=== PATIENT | male | born 1955 | race Caucasian/White ===

== ENCOUNTER 2020-09-19 11:54 | Emergency (ER) | payer OTHER, MEDICARE ==
[~2020-09-19] VITALS: Ht 160 cm; Wt 90.7 kg
[~2020-09-19 11:54] MED LIST: AMBEREN; ASPIRIN EC81 M1 PO; DIABETA; FISH OIL 1,0001 EAC8 PO; LISINOPRIL10 MG PO; NORVASC10 MG PO; PROTONIX40 M2 PO; VITAMIN D400 UNI1 PO
[2020-09-19 12:53] LABS: BASOPHILS 0.7 % (0.0-2.0); HEMATOCRIT 49.7 % (42.0-52.0); HEMOGLOBIN 16.7 gm/dL (14.0-18.0); LYMPHOCYTES 16.6 % (24.0-44.0); MCH 30.5 pg (26.0-34.0); MCHC 33.5 g/dL (28.0-37.0); MCV 91.1 fL (80.0-100.0); MONOCYTES 8.2 % (1.0-8.0); PLATELET COUNT 129 thou/uL (150-400); POLYS 73.5 % (36.0-66.0); RBC 5.45 mil/uL (4.50-6.00); RDW 14.5 % (10.5-14.5); WBC 10.8 thou/uL (4.0-11.0)
[2020-09-19 13:12] LABS: ANION GAP 7 mmol/L (7-16); BUN 13 mg/dL (7-18); CHLORIDE 106 mmol/L (98-107); CO2 29 mmol/L (21-32); CREATININE 0.9 mg/dL (0.7-1.3); GLUCOSE 198 mg/dL (74-106); POTASSIUM 4.6 mmol/L (3.5-5.1); SODIUM 142 mmol/L (136-145)
[2020-09-19 13:22] LABS: ALBUMIN 3.6 g/dL (3.4-5.0); SGOT 17 U/L (15-37); SGPT 17 U/L (30-65); TOTAL BILIRUBIN 0.3 mg/dL (0.2-1.0); TOTAL PROTEIN 7.2 g/dL (6.4-8.2); TROPONIN-I <0.06 ng/mL (<0.06)
[2020-09-19 15:58] VITALS: BP 140/78
--- NOTE | 2020-09-20 09:22 | EKG ---
[place] [address] [facility] [facility] [place] [address] ELECTROCARDIOGRAM REPORT Name: JANI PUGH Room #: DEP SILVESTRE Ha#: [id number] Admission: 09/19/20 Attend Phys: Discharge: 09/19/20 Date of : 55 Report #: [id number] [facility] ED Test Date: 2020-09-19 Test Time: 12:04:25 Pat Name: JANI PUGH Department: Room: Gender: M Principal Product Manager: CAREN : 1955 Requested By: Ta Kaiser Order Number: [id number] MD: Davi Peera Measurements Intervals Turner Rate: 94 P: 74 TN: 200 QRS: 109 QRSD: 140 T: 14 QT: 372 QTc: 466 Interpretive Statements Sinus rhythm Ventricular premature complex Probable left atrial enlargement Right bundle branch block Baseline wander in lead(s) I,III,aVL,V6 Compared to ECG 02/18/2011 12:24:11 Ventricular premature complex(es) now present Right bundle-branch block now present Sinus arrhythmia no longer present Right-axis deviation no longer present Electronically Signed On 09-20-2020 9:22:05 CDT by Davi Perea [email or web address] <ELECTRONICALLY SIGNED> By: Davi Perea MD, FAC 09/20/20 0922 1204 1204 Davi Perea MD, [facility] /EPI
== END 2020-09-19 16:00 | disposition home or self-care (01) ==
LOC: ER 11:54
PROVIDERS: Emergency Medicine
DX: R07.89 Other chest pain (principal); E11.9 Type 2 diabetes mellitus without complications; I10 Essential (primary) hypertension; K21.9 Gastro-esophageal reflux disease without esophagitis; F17.210 Nicotine dependence, cigarettes, uncomplicated; Z79.2 Long term (current) use of antibiotics; Z79.82 Long term (current) use of aspirin; Z88.0 Allergy status to penicillin; Z90.49 Acquired absence of other specified parts of digestive tract

== ENCOUNTER → 2020-11-10 | Outpatient (CLI) | payer OTHER, MEDICARE | LOC: SJCVCIMAG 07:00 | PROVIDERS: ATTEND Internal Medicine Cardiovascular Disease | DX: I44.0 Atrioventricular block, first degree (principal); I45.10 Unspecified right bundle-branch block; R07.9 Chest pain, unspecified; R61 Generalized hyperhidrosis; R06.00 Dyspnea, unspecified; I20.8 Other forms of angina pectoris; I10 Essential (primary) hypertension; E78.00 Pure hypercholesterolemia, unspecified; E11.9 Type 2 diabetes mellitus without complications; E78.5 Hyperlipidemia, unspecified; F17.200 Nicotine dependence, unspecified, uncomplicated; Z79.82 Long term (current) use of aspirin; Z79.899 Other long term (current) drug therapy; Z88.0 Allergy status to penicillin ==

== ENCOUNTER → 2020-12-02 | Outpatient (CLI) | payer OTHER, MEDICARE ==
[~2020-12-02] VITALS: Ht 160 cm; Wt 90.7 kg
[~2020-12-02] MED LIST changes: +ALBUTEROL2.5 MG/31 INH; +B-COMPLEX-VITA1 EACH PO; +FLOMAX0.4 MG PO; +LIPITOR10 MG PO; +NOVOLIN 70100 UNIT/5 SUBQ
[2020-12-02 08:18] VITALS: BP 136/110
[2020-12-02 08:29] LABS: HEMATOCRIT 48.8 % (42.0-52.0); HEMOGLOBIN 16.3 gm/dL (14.0-18.0); MCH 30.5 pg (26.0-34.0); MCHC 33.4 g/dL (28.0-37.0); MCV 91.3 fL (80.0-100.0); RBC 5.34 mil/uL (4.50-6.00); RDW 14.5 % (10.5-14.5); WBC 11.4 thou/uL (4.0-11.0)
[2020-12-02 08:41] LABS: CALCIUM 8.9 mg/dL (8.5-10.1); CREATININE 0.9 mg/dL (0.7-1.3); POTASSIUM 3.7 mmol/L (3.5-5.1)
--- NOTE | 2020-12-02 13:09 | CATHLAB ---
[facility] [place] [address] INVASIVE PROCEDURE REPORT Name: JANI PUGH Room #: REG [facility]#: [id number] Admission: 12/02/20 Attend Phys: Leoncio Stern MD Discharge: Date of : 55 Report #: [id number] THIS REPORT FOR: cc: Barbara Vásquez MD, Melanie MD Park, Jin S. MD ~ APPROVED REPORT Study performed: 12/02/2020 09:44:00 Patient Details Patient Status: Out-Patient Room #: The patient is a 65 year-old male Event Personnel Leoncio Stern Foot Specialist, Gissell Lindsey RTR Monitor, Ruchi Phan RN RN, Ingris Jarrett RTR, DIRECTOR IMMUNOLOGY Scrub Procedures Performed Art Access - R femoral artery* Left Heart Cath w/or w/o Coronaries [id number] [facility] Hemostasis with Manual pressure 76689 Initial Mod Sed Same Phys/QHP Gr5y [id number] 03875 Mod Sed Same Phys/QHP Ea 077759 Indication Dyspnea, Positive stress test Risk Factors HypercholesterolemiaPhysical Activity, Hypertension, Diabetes Tobacco History () Procedure Narrative The Right Groin^ was infiltrated with 1% Lidocaine subcutaneous anesthesia. A PINNACLE 4FR Sheath #[id number] sheath was inserted into the RFA^. Coronary angiography was performed using coronary diagnostic catheters. The right coronary system was accessed and visualized with a JR4 catheter. The left coronary system was accessed and visualized with a JL4 catheter. The left ventricle was accessed and visualized with a JR4 catheter. Hemostasis was obtained with manual pressure following sheath removal without any complications. The patient tolerated the procedure well and there were no complications associated with the procedure. There was no hematoma. [facility] [address] [place] [address] INVASIVE PROCEDURE REPORT Name: JANI PUGH Room #: REG CL [facility]#: [id number] Admission: 12/02/20 Attend Phys: Leoncio Stern MD Discharge: Date of : 55 Report #: [id number] Intraoperative Conscious Sedation Sedation start time: 11:05 Case end Time: 11:34 Fentanyl 50 mcg Versed 1 mg Fluoro Time: 3.30 minutes Dose: DAP 7185.80 cGycm2 1081 mGy Contrast Type and Amount: Omnipaque 45 ml Coronary Angiography The patient's coronary anatomy is left dominant. Diagnostic Cath Left Main There are separate ostia for the LAD and left circumflex. LAD This is a moderate-sized caliber vessel, traverses the anterior wall and wraps around the apex. There is mild diffuse disease in the midsegment, 20 to 30%. Diagonal 1 This is a small to moderate-sized caliber vessel, patent with no flow-limiting lesions. Diagonal 2 This is a small to moderate-sized caliber vessel, patent with no flow-limiting lesions. Circumflex The left circumflex artery is a dominant vessel. There is a mild stenosis in the proximal and mid segments, 30%. OM1 This is a moderate-sized caliber vessel, with mild disease proximally. OM2 This is a small to moderate-sized caliber vessel, patent with no flow-limiting lesions. OM3 This is a small to moderate-sized caliber vessel, patent with no flow-limiting lesions. L PDA There is a moderate-sized caliber vessel with mild disease proximally. Right Coronary This is a small, nondominant vessel with mild disease. Left Ventriculography Left Ventriculography was not performed. Ejection Fraction was >55% based off patient's Nuclear Cardiac Stress Test. An LVEDP was measured and there is no gradient across the outflow tract. Hemodynamics The aortic pressure is 139/82 mmHg with a mean of 106 mmHg. The left ventricular pressure is 128/13 mmHg with a mean of mmHg. The left ventricular end diastolic pressure is 21 mmHg. [facility] [address] [place] [address] INVASIVE PROCEDURE REPORT Name: JANI PUGH Room #: REG CL [facility]#: [id number] Admission: 12/02/20 Attend Phys: Leoncio Stern MD Discharge: Date of : 55 Report #: [id number] Conclusion 1. There is mild, nonobstructive disease in the LAD and left circumflex arteries. 2. The left circumflex artery is a dominant vessel. 3. There is mild disease in OM1 and the left PDA. 4. There is normal LV systolic function. 5. Recommend aggressive risk factor management. <ELECTRONICALLY SIGNED> By: Leoncio Stern MD 12/02/201308 08 08 Leoncio Stern MD /INF
--- NOTE | 2020-12-03 07:22 | EKG ---
[place] [address] [address] [facility] [place] [address] ELECTROCARDIOGRAM REPORT Name: JANI PUGH [id number] Admission: 12/02/20 Attend Phys: Leoncio Stern MD Discharge: Date of : 55 Report #: [id number] [facility] Test Date: 2020-12-02 Test Time: 08:14:46 Pat Name: JANI PUGH Department: Room: Gender: M Research Hydrologist: GINO : 1955 Requested By: Leoncio Stern Order Number: [id number] MD: Davi Perea Measurements Intervals Hooks Rate: 93 P: 67 WY: 195 QRS: 109 QRSD: 149 T: 7 QT: 379 QTc: 472 Interpretive Statements Sinus rhythm RBBB Compared to ECG 09/19/2020 12:04:25 Ventricular premature complex(es) no longer present Electronically Signed On 12-03-2020 7:22:05 CDT by Davi Perea [email or web address] <ELECTRONICALLY SIGNED> By: Davi Perea MD, [facility] 12/03/2022 3 3 Davi Perea MD, FACC /EPI
== END | disposition home or self-care (01) ==
LOC: CATH 07:20
PROVIDERS: ATTEND Internal Medicine Cardiovascular Disease
DX: R94.39 Abnormal result of other cardiovascular function study (principal); I25.10 Atherosclerotic heart disease of native coronary artery without angina pectoris; R06.00 Dyspnea, unspecified; I10 Essential (primary) hypertension; E78.00 Pure hypercholesterolemia, unspecified; E11.9 Type 2 diabetes mellitus without complications; J44.9 Chronic obstructive pulmonary disease, unspecified; K21.9 Gastro-esophageal reflux disease without esophagitis; Z98.890 Other specified postprocedural states; Z79.899 Other long term (current) drug therapy; Z79.4 Long term (current) use of insulin; Z82.49 Family history of ischemic heart disease and other diseases of the circulatory system

== ENCOUNTER → 2020-12-23 | Outpatient (CLI) | payer OTHER, MEDICARE | LOC: SJCVC 11:36 | PROVIDERS: ATTEND Internal Medicine Cardiovascular Disease | DX: I44.5 Left posterior fascicular block (principal); R94.31 Abnormal electrocardiogram [ECG] [EKG]; I25.10 Atherosclerotic heart disease of native coronary artery without angina pectoris; E78.00 Pure hypercholesterolemia, unspecified; I10 Essential (primary) hypertension; E11.9 Type 2 diabetes mellitus without complications; E78.5 Hyperlipidemia, unspecified; F17.200 Nicotine dependence, unspecified, uncomplicated; Z88.0 Allergy status to penicillin; Z79.82 Long term (current) use of aspirin; Z79.899 Other long term (current) drug therapy ==